=== PATIENT | female | born 1990 | race Caucasian/White ===

== ENCOUNTER 2022-08-05 12:23 | Emergency (ER) | payer BC, SELFPAY ==
--- NOTE | ~2022-08-05 | US_ITS ---
EXAMINATION: US PELVIS CLINICAL INFORMATION: Suprapubic pain radiating to the abdomen. LMP 07/26/2022. COMPARISON: No similar priors. TECHNIQUE: Ultrasound of the pelvis is performed using both transabdominal and transvaginal transducers along with Doppler. Transvaginal imaging is performed due to inadequate visualization transabdominally. FINDINGS: The uterus is anteverted and anteflexed measuring 8 x 4.7 x 5 cm. No uterine lesion noted. The endometrium measures 0.7 cm in thickness without discrete focal abnormality. The ovaries are normal in morphology with preserved flow at the moment of this examination. The right ovary measures 3.5 x 2 x 1.9 cm (7 mL) and the left ovary measures 3.1 x 2.2 x 2.1 cm (7.5 mL). There is a simple appearing cyst in the right ovary measuring 1.4 x 1 x 0.9 cm, almost certainly benign and for which no imaging follow-up is recommended. In the right adnexa, there are dilated adnexal vessels with slow flow. No free fluid. US/US pelvic ovarian doppler IMPRESSION: Dilated right adnexal vessels with slow flow that could predispose to DVT formation and which could be seen in the setting of pelvic congestion syndrome in the appropriate clinical context.
--- NOTE | ~2022-08-05 | CT_ITS ---
EXAMINATION: CT ABDOMEN AND PELVIS WITH CONTRAST CLINICAL INFORMATION: 42-year-old female with lower abdominal pain and nausea COMPARISON: Pelvic ultrasound from the same day area TECHNIQUE: Multidetector volumetric images were obtained from the superior aspect of the liver through the pubic symphysis following administration 85 mL of Omnipaque 350 intravenous contrast. Sagittal and coronal reformatted images were obtained on the technologist's workstation. Oral contrast: No This CT examination was performed using dose optimization techniques as appropriate, variously including the following: *Automated exposure control *Adjustment of mA and/or kV according to patient size (this includes techniques or standardized protocols for targeted exams where dose is matched to indication/reason for exam; i.e. extremities or head) *Use of iterative reconstruction technique DLP: 782 mGy-cm FINDINGS: LUNG BASES: The visualized lung bases are unremarkable. LIVER, GALLBLADDER, AND BILIARY TREE: The liver is normal in size, shape, and attenuation. No focal hepatic lesion or biliary ductal dilatation is present. The gallbladder is unremarkable with no evidence of radiopaque gallstones, gallbladder wall thickening, or obvious pericholecystic inflammatory changes. PANCREAS: Unremarkable. SPLEEN: Spleen measures 14.3 cm, enlarged ADRENAL GLANDS: Unremarkable. KIDNEYS AND URETERS: The kidneys are normal in size, shape, and attenuation. No hydronephrosis, hydroureter, or calculi seen. No perinephric stranding. BLADDER: Unremarkable. GASTROINTESTINAL TRACT: There is thickening of descending colon surrounded by haziness of the mesentery with few inflamed diverticuli the descending colon is mildly thickened also. Scattered diverticula seen through the rest of the colon. Normal appendix present. Loops of small bowel unremarkable. ABDOMINAL WALL: No significant hernia is appreciated. LYMPH NODES: Normal. VASCULAR: Unremarkable. PELVIC VISCERA: There is small amount of fluid in cul-de-sac. OSSEOUS STRUCTURES: Unremarkable. CT/CT abdomen pelvis w IV con IMPRESSION: 1. Diverticulitis of descending and sigmoid colon, colitis of sigmoid colon. 2. Small amount of fluid in cul-de-sac. 3. Splenomegaly. Fleischner guidelines were followed.
--- NOTE | ~2022-08-05 | US_ITS ---
EXAMINATION: US PELVIS CLINICAL INFORMATION: Suprapubic pain radiating to the abdomen. LMP 07/26/2022. COMPARISON: No similar priors. TECHNIQUE: Ultrasound of the pelvis is performed using both transabdominal and transvaginal transducers along with Doppler. Transvaginal imaging is performed due to inadequate visualization transabdominally. FINDINGS: The uterus is anteverted and anteflexed measuring 8 x 4.7 x 5 cm. No uterine lesion noted. The endometrium measures 0.7 cm in thickness without discrete focal abnormality. The ovaries are normal in morphology with preserved flow at the moment of this examination. The right ovary measures 3.5 x 2 x 1.9 cm (7 mL) and the left ovary measures 3.1 x 2.2 x 2.1 cm (7.5 mL). There is a simple appearing cyst in the right ovary measuring 1.4 x 1 x 0.9 cm, almost certainly benign and for which no imaging follow-up is recommended. In the right adnexa, there are dilated adnexal vessels with slow flow. No free fluid. US/US pelvic and transvaginal IMPRESSION: Dilated right adnexal vessels with slow flow that could predispose to DVT formation and which could be seen in the setting of pelvic congestion syndrome in the appropriate clinical context.
[2022-08-05 12:51] VITALS: BP 99/55; PULSE 99; RESP 18; TEMP 36.6; O2SAT 98; BMI 34.4
--- NOTE | 2022-08-05 12:51 | ED.ABDPAIN ---
HPI - Abdominal Pain General Chief Complaint: Abdominal Pain <PAM Britt - Last Filed: 08/05/22 12:55> Stated Complaint: Abd pain <PAM Britt - Last Filed: 08/05/22 12:55> Time Seen by Provider: 08/05/22 13:55 <PAM Britt - Last Filed: 08/05/22 12:55> Source: patient <Mary Salcido NP - Last Filed: 08/05/22 16:46> Mode of arrival: ambulatory <Mary Salcido NP - Last Filed: 08/05/22 16:46> Limitations: no limitations <Mary Salcido NP - Last Filed: 08/05/22 16:46> History of Present Illness HPI narrative: 32-year-old female with history of ovarian cyst, tubal ligation presents to the emergency room with complaints of lower abdominal pain for the last 3 days with nausea. No diarrhea, constipation, fevers, chills or urinary symptoms. Patient denies any vaginal discharge, rashes or lesions. <Mary Salcido NP - Last Filed: 08/05/22 16:46> MD elicited complaint: abdominal pain <Mary Salcido NP - Last Filed: 08/05/22 16:46> Related Data Home Medications: Previous Rx's Medication Instructions Recorded amoxicillin 875 mg-potassium 1 tab PO BID #14 tabs 08/05/22 clavulanate 125 mg tablet oxycodone 5 mg tablet 5 mg PO Q6H PRN pain #10 tabs 08/05/22 <PAM Britt - Last Filed: 08/05/22 12:55> Allergies/Adverse Reactions: Allergies Allergy/AdvReac Type Severity Reaction Status Date / Time azithromycin Allergy Mild Unknown Uncoded 08/05/22 12:52 <PAM Britt - Last Filed: 08/05/22 12:55> Review of Systems Review of Systems Yes all other systems are reviewed and are negative <OLIVERIO Gamino Last Filed: 08/05/22 16:46> Constitutional: Reports no additional constitutional complaints, Denies body ache(s), Denies chills, Denies fever(s), Denies headache(s) and Denies weakness <Mary Salcido MIRROR FINISHING MACHINE OPERATOR - Last Filed: 08/05/22 16:46> Eyes: Reports no additional eye complaints and Denies change in vision <Mary Salcido MIRROR FINISHING MACHINE OPERATOR - Last Filed: 08/05/22 16:46> Reports system reviewed and no additional complaints, except as documented, Denies dizziness, Denies headache(s), Denies nasal congestion, Denies nasal discharge and Denies neck pain <Mary Salcido MIRROR FINISHING MACHINE OPERATOR - Last Filed: 08/05/22 16:46> Cardiovascular: Reports no additional cardiovascular complaints, Denies chest pain, Denies leg edema and Denies dyspnea <Mary Salcido MIRROR FINISHING MACHINE OPERATOR - Last Filed: 08/05/22 16:46> Respiratory: Reports no additional respiratory complaints, Denies cough and Denies dyspnea <Mary Salcido, MIRROR FINISHING MACHINE OPERATOR - Last Filed: 08/05/22 16:46> Gastrointestinal: Reports no additional gastrointestinal complaints, Reports abdominal pain, Denies diarrhea, Reports nausea and Denies vomiting <Mary Salcido, MIRROR FINISHING MACHINE OPERATOR - Last Filed: 08/05/22 16:46> Genitourinary: Reports no additional female genitourinary complaints and Denies urinary incontinence <Mary Salcido MIRROR FINISHING MACHINE OPERATOR - Last Filed: 08/05/22 16:46> Musculoskeletal: Reports no additional musculoskeletal complaints, Denies back pain, Denies arthralgias, Denies joint swelling, Denies neck pain, Denies numbness and Denies tingling <Mary Salcido MIRROR FINISHING MACHINE OPERATOR - Last Filed: 08/05/22 16:46> Skin/Breast: Reports system reviewed and no additional complaints, except as docu and Denies rash <Mary Salcido, MIRROR FINISHING MACHINE OPERATOR - Last Filed: 08/05/22 16:46> Reports system reviewed and no additional complaints, except as documented, Denies dizziness, Denies headache(s), Denies numbness, Denies tingling and Denies weakness <Mary Salcido MIRROR FINISHING MACHINE OPERATOR - Last Filed: 08/05/22 16:46> PMFSH Past Medical History Attestation statement: The following information was validated with the patient. <Mary Salcido MIRROR FINISHING MACHINE OPERATOR - Last Filed: 08/05/22 16:46> Source: old records reviewed and nursing notes reviewed <Mary Salcido NP - Last Filed: 08/05/22 16:46> Social History Social History: Social History Advance Directives: No Advance Directives Information Provided: No <PAM Britt - Last Filed: 08/05/22 12:55> Physical Exam ED Vital Signs: Vital Signs - 24 hr 08/05/22 12:51 08/05/22 15:24 Temperature 98 F Pulse Rate 99 Respiratory Rate 18 16 Blood Pressure 99/55 L Pulse Oximetry 98 BMI result Body Mass Index 34.4 <PAM Britt - Last Filed: 08/05/22 12:55> Vital Signs - 24 hr 08/05/22 12:51 08/05/22 15:24 Temperature 98 F Pulse Rate 99 Respiratory Rate 18 16 Blood Pressure 99/55 L Pulse Oximetry 98 BMI result Body Mass Index 34.4 <Mary Salcido NP - Last Filed: 08/05/22 16:46> Const General: cooperative, healthy appearing, comfortable and no acute distress <Mary Salcido NP - Last Filed: 08/05/22 16:46> Orientation/consciousness: patient oriented x3 <Mary Salcido NP - Last Filed: 08/05/22 16:46> Limitations: no limitations <Mary Salcido NP - Last Filed: 08/05/22 16:46> HENME Head: Yes normal to inspection <Mary Salcido NP - Last Filed: 08/05/22 16:46> Ears: hearing grossly normal bilaterally <Mary Salcido NP - Last Filed: 08/05/22 16:46> Eyes General: appearance normal, both eyes and all related structures <Mary Salcido NP - Last Filed: 08/05/22 16:46> Pupils: Equal, round and reactive pupils present <Mary Salcido NP - Last Filed: 08/05/22 16:46> Neck Neck: Yes normal visual inspection, Yes full ROM and Yes no lymphadenopathy <Mary Salcido MIRROR FINISHING MACHINE OPERATOR - Last Filed: 08/05/22 16:46> Chest Chest palpation & inspection: normal inspection of the chest <Mary Salcido MIRROR FINISHING MACHINE OPERATOR - Last Filed: 08/05/22 16:46> Resp Effort & Inspection: normal respiratory effort <Mary Salcido MIRROR FINISHING MACHINE OPERATOR - Last Filed: 08/05/22 16:46> Auscultation: clear to auscultation bilaterally <Mary Salcido MIRROR FINISHING MACHINE OPERATOR - Last Filed: 08/05/22 16:46> Cardio Rate: regular rate <Mary Salcido, MIRROR FINISHING MACHINE OPERATOR - Last Filed: 08/05/22 16:46> Rhythm: regular rhythm <Mary Salcido MIRROR FINISHING MACHINE OPERATOR - Last Filed: 08/05/22 16:46> Peripheral pulses: Peripheral pulses 2+ throughout <Mary Salcido, MIRROR FINISHING MACHINE OPERATOR - Last Filed: 08/05/22 16:46> GI Inspection: Yes normal to inspection <Mary Salcido MIRROR FINISHING MACHINE OPERATOR - Last Filed: 08/05/22 16:46> Palpation (GI): Soft to palpation, Tenderness to palpation present (GI) (+lower TTP) and no guarding <Mary Salcido MIRROR FINISHING MACHINE OPERATOR - Last Filed: 08/05/22 16:46> Auscultation: normal bowel sounds <Mary Salcido MIRROR FINISHING MACHINE OPERATOR - Last Filed: 08/05/22 16:46> General: Yes no CVA tenderness <Mary Salcido MIRROR FINISHING MACHINE OPERATOR - Last Filed: 08/05/22 16:46> Back/Spine/Pelvis Back: no CVA tenderness <Mary Salcido, MIRROR FINISHING MACHINE OPERATOR - Last Filed: 08/05/22 16:46> Thoracic/Lumbar Spine: thoracic and lumbar spine normal to inspection <Mary Salcido MIRROR FINISHING MACHINE OPERATOR - Last Filed: 08/05/22 16:46> Skin General skin exam: no rashes or lesions noted <Mary Salcido MIRROR FINISHING MACHINE OPERATOR - Last Filed: 08/05/22 16:46> Neuro General: patient oriented x3 and moves all extremities <Mary Salcido MIRROR FINISHING MACHINE OPERATOR - Last Filed: 08/05/22 16:46> Cranial nerves: Yes Equal, round and reactive pupils present <Mary Salcido NP - Last Filed: 08/05/22 16:46> Cognition (Neuro): normal cognition <Mary Salcido NP - Last Filed: 08/05/22 16:46> Gait exam (Neuro): Normal gait present <Mary Salcido NP - Last Filed: 08/05/22 16:46> Extrem General: Yes normal to inspection <Mary Salcido NP - Last Filed: 08/05/22 16:46> Course Course Course Narrative: JEREMÍAS 12:50PM - 32yoF with a PMHx of ovarian cyst who is presenting to the ER with complaints of nausea with suprapubic abdominal pain that has radiated to the rest of her abdomen for the past 2-3 days worse today. Reports that she has chronic constipation. Denies fevers, vomiting, diarrhea, dysuria, hematuria, abnormal vaginal discharge or any other symptoms complaints or concerns at this time. Plan: Will obtain labs, UA, UHCG, pelvic/transvaginal/Doppler ultrasound. Patient will be sent back to [facility] to be evaluated in the ED. <PAM Britt - Last Filed: 08/05/22 12:55> Reevaluation(s) Reevaluation #1: 8190- ultrasound consistent with pelvic congestion syndrome. Not sure that this is explaining all the patient's pain and so I will obtain a CT of the abdomen and pelvis to evaluate further <Mary Salcido NP - Last Filed: 08/05/22 16:46> Reevaluation #2: 7345- CT shows mild diverticulitis. No leukocytosis. Pain is well controlled. Patient tolerating p.o.. Patient be discharged home with oral antibiotic. Reviewed worrisome signs and symptoms when to return to the emergency room. Comfortable discharge home for <Mary Salcido NP - Last Filed: 08/05/22 16:46> Medical Decision Making Medical Decision Making MDM Narrative: 32-year-old female here with lower abdominal pain for the last 3 days with nausea. No other associated symptoms. Patient has history of ovarian cyst. On exam patient bilateral lower abdominal tenderness with no rebound or guarding. Vitals stable. patient had labs, UA, pelvic ultrasound with Doppler ordered from triage <Mary Salcido NP - Last Filed: 08/05/22 16:46> Differential Diagnosis Differential Diagnoses: The differential diagnosis associated with the presentation includes <Mary Salcido NP - Last Filed: 08/05/22 16:46> ovarian cyst, ovarian torsion, diverticulitis, appendicitis <Mary Salcido NP - Last Filed: 08/05/22 16:46> Lab Data MDM Lab Attestation statement: I reviewed the patient's lab results. <Mary Salcido NP - Last Filed: 08/05/22 16:46> Result Diagrams: 08/05/22 13:42 08/05/22 13:42 <PAM Britt - Last Filed: 08/05/22 12:55> Labs: Lab Results 08/05/22 08/05/22 08/05/22 Range/Units 13:42 13:42 13:42 WBC 12.3 H (4.8-10.8) X10*3/uL RBC 4.80 (4.20-5.50) X10*6/uL Hgb 13.4 (12.0-16.0) g/dl Hct 39.2 (37.0-47.0) % MCV 81.7 (80.0-98.0) fL MCH 27.9 (27.0-33.0) pg MCHC 34.2 (31.0-35.0) g/dl RDW 12.4 (11.0-16.0) % Plt Count 316 (160-400) X10*3/uL MPV 8.6 L (9.4-12.3) fL Immature Gran % (Auto) 0.3 (0.0-0.4) % Neut % (Auto) 79.6 H (45-73) % Lymph % (Auto) 10.1 L (20-40) % [place] % (Auto) 8.0 (2-11) % Eos % (Auto) 1.5 (0-4) % Baso % (Auto) 0.5 (0-2) % Lymph # (Auto) 1.2 (1.2-4.9) X10*3/uL [place] # (Auto) 1.0 (0.1-1.2) X10*3/uL Eos # (Auto) 0.2 (0.0-0.4) X10*3/uL Baso # (Auto) 0.1 (0.0-0.2) X10*3/uL Abs Immat Gran (auto) 0.04 H (0.00-0.03) X10*3/uL Absolute Neuts (auto) 9.8 H (2.0-8.3) x10*3/uL Absolute Nucleated RBC 0.000 (0.0-0.012) X10*3/uL Nucleated RBC % (auto) 0.0 (0.0-0.2) /100WBC PT 13.1 (10.0-13.1) SEC INR 1.1 (0.9-1.1) Sodium 140 (135-145) mmol/L Potassium 3.8 (3.3-5.1) mmol/L Chloride 107 (96-108) mmol/L Carbon Dioxide 23 (22-29) mmol/L Anion Gap 14 (12-20) BUN 14 (9-16) mg/dL Creatinine 0.90 (0.5-1.4) mg/dL Estim Creat Clear Calc 89.2 Estimated GFR > 60 Random Glucose 91 (60-115) mg/dL Calcium 8.8 (8.4-10.2) mg/dL Magnesium 2.1 (1.6-2.6) mg/dL Total Bilirubin 1.4 H (0.0-1.0) mg/dL AST 15 (5-31) U/L ALT 12 (0-31) U/L Alkaline Phosphatase 68 (39-117) U/L Total Protein 7.1 (6.5-8.0) g/dL Albumin 4.2 (3.5-5.0) g/dL Lipase 13 (8-78) U/L Beta HCG, Quant < 2 mIU/mL Urine Color Urine Appearance Urine pH (5.0-9.0) Ur Specific [place] (1.005-1.025) Urine Protein (Neg-Trace) mg/dL Urine Glucose (UA) (Negative) mg/dL Urine Ketones (Negative) mg/dL Urine Blood (Negative) Urine Nitrite (Negative) Ur Leukocyte Esterase (Negative) Urine RBC (0-2) /HPF Urine WBC (0-5) /HPF Ur Squamous Epith Cells (0-2) /HPF Urine Bacteria (None Seen) Hyaline Casts (0-2) /LPF 08/05/22 Range/Units 13:42 WBC (4.8-10.8) X10*3/uL RBC (4.20-5.50) X10*6/uL Hgb (12.0-16.0) g/dl Hct (37.0-47.0) % MCV (80.0-98.0) fL MCH (27.0-33.0) pg MCHC (31.0-35.0) g/dl RDW (11.0-16.0) % Plt Count (160-400) X10*3/uL MPV (9.4-12.3) fL Immature Gran % (Auto) (0.0-0.4) % Neut % (Auto) (45-73) % Lymph % (Auto) (20-40) % [place] % (Auto) (2-11) % Eos % (Auto) (0-4) % Baso % (Auto) (0-2) % Lymph # (Auto) (1.2-4.9) X10*3/uL [place] # (Auto) (0.1-1.2) X10*3/uL Eos # (Auto) (0.0-0.4) X10*3/uL Baso # (Auto) (0.0-0.2) X10*3/uL Abs Immat Gran (auto) (0.00-0.03) X10*3/uL Absolute Neuts (auto) (2.0-8.3) x10*3/uL Absolute Nucleated RBC (0.0-0.012) X10*3/uL Nucleated RBC % (auto) (0.0-0.2) /100WBC PT (10.0-13.1) SEC INR (0.9-1.1) Sodium (135-145) mmol/L Potassium (3.3-5.1) mmol/L Chloride (96-108) mmol/L Carbon Dioxide (22-29) mmol/L Anion Gap (12-20) BUN (9-16) mg/dL Creatinine (0.5-1.4) mg/dL Estim Creat Clear Calc Estimated GFR Random Glucose (60-115) mg/dL Calcium (8.4-10.2) mg/dL Magnesium (1.6-2.6) mg/dL Total Bilirubin (0.0-1.0) mg/dL AST (5-31) U/L ALT (0-31) U/L Alkaline Phosphatase (39-117) U/L Total Protein (6.5-8.0) g/dL Albumin (3.5-5.0) g/dL Lipase (8-78) U/L Beta HCG, Quant mIU/mL Urine Color Yellow Urine Appearance Clear Urine pH 7.0 (5.0-9.0) Ur Specific [place] 1.025 (1.005-1.025) Urine Protein Negative (Neg-Trace) mg/dL Urine Glucose (UA) Negative (Negative) mg/dL Urine Ketones Negative (Negative) mg/dL Urine Blood Trace H (Negative) Urine Nitrite Negative (Negative) Ur Leukocyte Esterase Trace H (Negative) Urine RBC 0-2 (0-2) /HPF Urine WBC 0-5 (0-5) /HPF Ur Squamous Epith Cells 6-10 (0-2) /HPF Urine Bacteria 1+ (None Seen) Hyaline Casts 0-2 (0-2) /LPF <PAM Britt - Last Filed: 08/05/22 12:55> Lab Results 08/05/22 08/05/22 08/05/22 Range/Units 13:42 13:42 13:42 WBC 12.3 H (4.8-10.8) X10*3/uL RBC 4.80 (4.20-5.50) X10*6/uL Hgb 13.4 (12.0-16.0) g/dl Hct 39.2 (37.0-47.0) % MCV 81.7 (80.0-98.0) fL MCH 27.9 (27.0-33.0) pg MCHC 34.2 (31.0-35.0) g/dl RDW 12.4 (11.0-16.0) % Plt Count 316 (160-400) X10*3/uL MPV 8.6 L (9.4-12.3) fL Immature Gran % (Auto) 0.3 (0.0-0.4) % Neut % (Auto) 79.6 H (45-73) % Lymph % (Auto) 10.1 L (20-40) % [place] % (Auto) 8.0 (2-11) % Eos % (Auto) 1.5 (0-4) % Baso % (Auto) 0.5 (0-2) % Lymph # (Auto) 1.2 (1.2-4.9) X10*3/uL [place] # (Auto) 1.0 (0.1-1.2) X10*3/uL Eos # (Auto) 0.2 (0.0-0.4) X10*3/uL Baso # (Auto) 0.1 (0.0-0.2) X10*3/uL Abs Immat Gran (auto) 0.04 H (0.00-0.03) X10*3/uL Absolute Neuts (auto) 9.8 H (2.0-8.3) x10*3/uL Absolute Nucleated RBC 0.000 (0.0-0.012) X10*3/uL Nucleated RBC % (auto) 0.0 (0.0-0.2) /100WBC PT 13.1 (10.0-13.1) SEC INR 1.1 (0.9-1.1) Sodium 140 (135-145) mmol/L Potassium 3.8 (3.3-5.1) mmol/L Chloride 107 (96-108) mmol/L Carbon Dioxide 23 (22-29) mmol/L Anion Gap 14 (12-20) BUN 14 (9-16) mg/dL Creatinine 0.90 (0.5-1.4) mg/dL Estim Creat Clear Calc 89.2 Estimated GFR > 60 Random Glucose 91 (60-115) mg/dL Calcium 8.8 (8.4-10.2) mg/dL Magnesium 2.1 (1.6-2.6) mg/dL Total Bilirubin 1.4 H (0.0-1.0) mg/dL AST 15 (5-31) U/L ALT 12 (0-31) U/L Alkaline Phosphatase 68 (39-117) U/L Total Protein 7.1 (6.5-8.0) g/dL Albumin 4.2 (3.5-5.0) g/dL Lipase 13 (8-78) U/L Beta HCG, Quant < 2 mIU/mL Urine Color Urine Appearance Urine pH (5.0-9.0) Ur Specific [place] (1.005-1.025) Urine Protein (Neg-Trace) mg/dL Urine Glucose (UA) (Negative) mg/dL Urine Ketones (Negative) mg/dL Urine Blood (Negative) Urine Nitrite (Negative) Ur Leukocyte Esterase (Negative) Urine RBC (0-2) /HPF Urine WBC (0-5) /HPF Ur Squamous Epith Cells (0-2) /HPF Urine Bacteria (None Seen) Hyaline Casts (0-2) /LPF 08/05/22 Range/Units 13:42 WBC (4.8-10.8) X10*3/uL RBC (4.20-5.50) X10*6/uL Hgb (12.0-16.0) g/dl Hct (37.0-47.0) % MCV (80.0-98.0) fL MCH (27.0-33.0) pg MCHC (31.0-35.0) g/dl RDW (11.0-16.0) % Plt Count (160-400) X10*3/uL MPV (9.4-12.3) fL Immature Gran % (Auto) (0.0-0.4) % Neut % (Auto) (45-73) % Lymph % (Auto) (20-40) % [place] % (Auto) (2-11) % Eos % (Auto) (0-4) % Baso % (Auto) (0-2) % Lymph # (Auto) (1.2-4.9) X10*3/uL [place] # (Auto) (0.1-1.2) X10*3/uL Eos # (Auto) (0.0-0.4) X10*3/uL Baso # (Auto) (0.0-0.2) X10*3/uL Abs Immat Gran (auto) (0.00-0.03) X10*3/uL Absolute Neuts (auto) (2.0-8.3) x10*3/uL Absolute Nucleated RBC (0.0-0.012) X10*3/uL Nucleated RBC % (auto) (0.0-0.2) /100WBC PT (10.0-13.1) SEC INR (0.9-1.1) Sodium (135-145) mmol/L Potassium (3.3-5.1) mmol/L Chloride (96-108) mmol/L Carbon Dioxide (22-29) mmol/L Anion Gap (12-20) BUN (9-16) mg/dL Creatinine (0.5-1.4) mg/dL Estim Creat Clear Calc Estimated GFR Random Glucose (60-115) mg/dL Calcium (8.4-10.2) mg/dL Magnesium (1.6-2.6) mg/dL Total Bilirubin (0.0-1.0) mg/dL AST (5-31) U/L ALT (0-31) U/L Alkaline Phosphatase (39-117) U/L Total Protein (6.5-8.0) g/dL Albumin (3.5-5.0) g/dL Lipase (8-78) U/L Beta HCG, Quant mIU/mL Urine Color Yellow Urine Appearance Clear Urine pH 7.0 (5.0-9.0) Ur Specific [place] 1.025 (1.005-1.025) Urine Protein Negative (Neg-Trace) mg/dL Urine Glucose (UA) Negative (Negative) mg/dL Urine Ketones Negative (Negative) mg/dL Urine Blood Trace H (Negative) Urine Nitrite Negative (Negative) Ur Leukocyte Esterase Trace H (Negative) Urine RBC 0-2 (0-2) /HPF Urine WBC 0-5 (0-5) /HPF Ur Squamous Epith Cells 6-10 (0-2) /HPF Urine Bacteria 1+ (None Seen) Hyaline Casts 0-2 (0-2) /LPF <Mary Salcido NP - Last Filed: 08/05/22 16:46> Independent Interpretation I performed an independent interpretation of an: Ultrasound <Mary Salcido NP - Last Filed: 08/05/22 16:46> Interpretation: I indepedentely reviewed the ultrasound agree with radiologist's report I independently reviewed the CT scan and agree with radiologist's report <Mary Salcido NP - Last Filed: 08/05/22 16:46> Radiology Impression Discussion of test interpretation with radiology: I have reviewed the radiologist's reading. <Mary Salcido NP - Last Filed: 08/05/22 16:46> Radiologist Impression: [address] [address] Ultrasound Report Signed Patient: Danna Belle MR#: [id number] : 1990 Acct:[id number] Age/Sex: 32 / F ADM Date: 08/05/22 Loc: .ED Attending Dr: Ordering Physician: Talita Tubbs Date of Service: 08/05/22 Procedure(s): US pelvic and transvaginal Accession Number(s): [id number] cc: Talita Tubbs~ EXAMINATION:? US PELVIS CLINICAL INFORMATION:? Suprapubic pain radiating to the abdomen. LMP 07/26/2022. COMPARISON: No similar priors. TECHNIQUE: Ultrasound of the pelvis is performed using both transabdominal and transvaginal transducers along with Doppler. Transvaginal imaging is performed due to inadequate visualization transabdominally. FINDINGS: The uterus is anteverted and anteflexed measuring 8 x 4.7 x 5 cm. No uterine lesion noted. The endometrium measures 0.7 cm in thickness without discrete focal abnormality. The ovaries are normal in morphology with preserved flow at the moment of this examination. The right ovary measures 3.5 x 2 x 1.9 cm (7 mL) and the left ovary measures 3.1 x 2.2 x 2.1 cm (7.5 mL). There is a simple appearing cyst in the right ovary measuring 1.4 x 1 x 0.9 cm, almost certainly benign and for which no imaging follow-up is recommended. In the right adnexa, there are dilated adnexal vessels with slow flow. No free fluid. US/US pelvic and transvaginal IMPRESSION: Dilated right adnexal vessels with slow flow that could predispose to DVT formation and which could be seen in the setting of pelvic congestion syndrome in the appropriate clinical context. FINDINGS: LUNG BASES: The visualized lung bases are unremarkable.? LIVER, GALLBLADDER, AND BILIARY TREE: The liver is normal in size, shape, and attenuation. No focal hepatic lesion or biliary ductal dilatation is present. The gallbladder is unremarkable with no evidence of radiopaque gallstones, gallbladder wall thickening, or obvious pericholecystic inflammatory changes.? PANCREAS: Unremarkable.? SPLEEN: Spleen measures 14.3 cm, enlarged? ADRENAL GLANDS: Unremarkable.? KIDNEYS AND URETERS: The kidneys are normal in size, shape, and attenuation. No hydronephrosis, hydroureter, or calculi seen. No perinephric stranding. ? BLADDER: Unremarkable.? GASTROINTESTINAL TRACT: There is thickening of descending colon surrounded by haziness of the mesentery with few inflamed diverticuli the descending colon is mildly thickened also. Scattered diverticula seen through the rest of the colon. Normal appendix present. Loops of small bowel unremarkable.? ABDOMINAL WALL: No significant hernia is appreciated.? LYMPH NODES: Normal. VASCULAR: Unremarkable. PELVIC VISCERA: There is small amount of fluid in cul-de-sac.? OSSEOUS STRUCTURES: Unremarkable.? CT/CT abdomen pelvis w IV con IMPRESSION: 1.? Diverticulitis of descending and sigmoid colon, colitis of sigmoid colon. 2.? Small amount of fluid in cul-de-sac. 3.? Splenomegaly. ? <Mary Salcido NP - Last Filed: 08/05/22 16:46> Independent Historian Clinical information obtained from an independent historian. History obtained from or confirmed by: Spouse <Mary Salcido NP - Last Filed: 08/05/22 16:46> Medications Administered Discontinued Medications Generic Name Dose Route Start Last Admin Trade Name Antionette PRN Reason Stop Dose Admin Acetaminophen 975 mg 08/05/22 16:07 08/05/22 16:38 Acetaminophen 325 Mg Tablet PO 08/05/22 16:08 975 mg ONCE ONE Administration Iohexol 85 ml 08/05/22 15:07 08/05/22 15:08 Iohexol 350 Mg/Ml 100 Ml Infus..Btl IV 08/05/22 15:08 85 ml ONCE ONE Administration Morphine Sulfate 4 mg 08/05/22 14:07 08/05/22 14:20 Morphine Sulfate 4 Mg/Ml Cartridge IVPUSH 08/05/22 14:08 4 mg ONCE ONE Administration Protocol Ondansetron HCl 4 mg 08/05/22 14:07 08/05/22 14:20 Ondansetron Hcl 4 Mg/2 Ml Vial IVPUSH 08/05/22 14:08 4 mg ONCE ONE Administration Oxycodone HCl 5 mg 08/05/22 16:07 08/05/22 16:37 Oxycodone Hcl Immed Release 5 Mg Tablet PO 08/05/22 16:08 5 mg ONCE ONE Administration <PAM Britt - Last Filed: 08/05/22 12:55> Medications Administered Discontinued Medications Generic Name Dose Route Start Last Admin Trade Name Antionette PRN Reason Stop Dose Admin Acetaminophen 975 mg 08/05/22 16:07 08/05/22 16:38 Acetaminophen 325 Mg Tablet PO 08/05/22 16:08 975 mg ONCE ONE Administration Iohexol 85 ml 08/05/22 15:07 08/05/22 15:08 Iohexol 350 Mg/Ml 100 Ml Infus..Btl IV 08/05/22 15:08 85 ml ONCE ONE Administration Morphine Sulfate 4 mg 08/05/22 14:07 08/05/22 14:20 Morphine Sulfate 4 Mg/Ml Cartridge IVPUSH 08/05/22 14:08 4 mg ONCE ONE Administration Protocol Ondansetron HCl 4 mg 08/05/22 14:07 08/05/22 14:20 Ondansetron Hcl 4 Mg/2 Ml Vial IVPUSH 08/05/22 14:08 4 mg ONCE ONE Administration Oxycodone HCl 5 mg 08/05/22 16:07 08/05/22 16:37 Oxycodone Hcl Immed Release 5 Mg Tablet PO 08/05/22 16:08 5 mg ONCE ONE Administration <Mary Salcido NP - Last Filed: 08/05/22 16:46> Discharge Plan Discharge Clinical Impression: Diverticulitis <PAM Britt - Last Filed: 08/05/22 12:55> Patient Disposition: Home, Self-Care <PAM Britt - Last Filed: 08/05/22 12:55> Instructions: Diverticulitis (ED), Diverticulitis Diet (ED) <PAM Britt - Last Filed: 08/05/22 12:55> Additional Instructions: return for worsening pain, fever, vomiting your ultrasound shows pelvic congestion syndrome. This is likely an incidental finding and something that you did not know about that you have had for many years. You may follow-up with a talent acquisition lead in regards to this <PAM Britt - Last Filed: 08/05/22 12:55> Prescriptions: New amoxicillin-pot clavulanate 875-125 mg tablet 1 tab PO BID Qty: 14 0RF oxycodone 5 mg tablet 5 mg PO Q6H PRN (Reason: pain) Qty: 10 0RF Rx Instructions: Partial Fill upon patient request. <PAM Britt - Last Filed: 08/05/22 12:55> Referrals: Marija Murray MD [Primary Care Provider] - 10 days (post er visit ) <PAM Britt - Last Filed: 08/05/22 12:55>
[2022-08-05 13:50] LABS: MANUAL DIFF FLAG NO
[2022-08-05 13:52] LABS: Basophils Absolute Auto 0.1 X10*3/uL (0.0-0.2); Basophils Percent Auto 0.5 % (0-2); Eosinophils Absolute Auto 0.2 X10*3/uL (0.0-0.4); Eosinophils Percent Auto 1.5 % (0-4); Hematocrit 39.2 % (37.0-47.0); Hemoglobin 13.4 g/dl (12.0-16.0); Imm Gran Abs Auto 0.04 X10*3/uL (0.00-0.03); Imm Gran Pct Auto 0.3 % (0.0-0.4); Lymphocytes Absolute Auto 1.2 X10*3/uL (1.2-4.9); Lymphocytes Percent Auto 10.1 % (20-40); Mean Corpuscular HGB Conc 34.2 g/dl (31.0-35.0); Mean Corpuscular Hemoglobin 27.9 pg (27.0-33.0); Mean Corpuscular Volume 81.7 fL (80.0-98.0); Mean Platelet Volume 8.6 fL (9.4-12.3); Neutrophils Absolute Auto 9.8 x10*3/uL (2.0-8.3); Neutrophils Percent Auto 79.6 % (45-73); Platelet Count 316 X10*3/uL (160-400); Red Cell Distribution Width 12.4 % (11.0-16.0); White Blood Count 12.3 X10*3/uL (4.8-10.8)
[2022-08-05 13:55] LABS: Appearance Urine Clear; Color Urine Yellow; Glucose Urine UA Negative (Negative); Leukocyte Esterase Urine Trace (Negative); Nitrite Urine Negative (Negative); Specific Gravity - Urine 1.025 (1.005-1.025); UMIC TRIGGER UACC YES; Urine Blood Trace (Negative); Urine Ketones Negative (Negative); Urine Protein Negative (Neg-Trace)
[2022-08-05 13:57] LABS: INTERNATIONAL NORM RATIO 1.1 (0.9-1.1); Prothrombin Time 13.1 SEC (10.0-13.1)
[2022-08-05 14:02] LABS: Bacteria Urine 1+ (None Seen); Hyaline Casts Urine 0-2 /LPF (0-2); RBC Urine 0-2 /HPF (0-2); WBC Urine 0-5 /HPF (0-5)
[2022-08-05 14:15] LABS: Alanine Aminotransferase 12 U/L (0-31); Albumin Level 4.2 g/dL (3.5-5.0); Alkaline Phosphatase 68 U/L (39-117); Anion Gap 14 (12-20); Aspartate Amino Transferase 15 U/L (5-31); Bilirubin Total 1.4 mg/dL (0.0-1.0); Blood Urea Nitrogen 14 mg/dL (9-16); Calcium 8.8 mg/dL (8.4-10.2); Carbon Dioxide 23 mmol/L (22-29); Chloride 107 mmol/L (96-108); Creatinine Clr Calc Pharmacy 89.2; Estimated Glomerular Filt Rate > 60; Glucose Random 91 mg/dL (60-115); Lipase 13 U/L (8-78); Magnesium 2.1 mg/dL (1.6-2.6); Potassium 3.8 mmol/L (3.3-5.1); Sodium 140 mmol/L (135-145); Total Protein 7.1 g/dL (6.5-8.0)
[2022-08-05 14:16] LABS: HCG Quantitative < 2 mIU/mL
[2022-08-05] MEDS: Morphine Sulfate 4 MG/ML CARTRIDGE IVPUSH (14:20)
[2022-08-05] MEDS: ondansetron HCL 4 MG/2 ML VIAL IVPUSH (14:20)
--- NOTE | 2022-08-05 15:00 | PC.NURSE ---
pt a&ox3, reporting 12/31 abd/back/ovarian pain, 20G IV placed left AC by PA student, medicated per provider order, pt to CT.
[2022-08-05] MEDS: iohexoL 350 MG/ML 100 ML INFUS..BTL 85 ML IV (15:08)
--- NOTE | 2022-08-05 15:23 | PC.NURSE ---
pt sleeping, rr16, resp even and unlabored, s.o. at bedside, pt pending CT results.
[2022-08-05 15:24] VITALS: RESP 16
[2022-08-05] MEDS: oxyCODONE HCl Immed Release 5 MG TABLET PO (16:37)
[2022-08-05] MEDS: Acetaminophen 325 MG TABLET 975 MG PO (16:38)
== END 2022-08-05 16:52 | disposition home or self-care (01) ==
PROVIDERS: Physician Assistant Medical; Emergency Provider Emergency Medicine Emergency Medical Services; PCP Hospitalist
DX: K57.32 Diverticulitis of large intestine without perforation or abscess without bleeding (principal); R10.2 Pelvic and perineal pain; R10.32 Left lower quadrant pain; Z79.899 Other long term (current) drug therapy
CPT/HCPCS: 36415; 74177; 76830; 76856; 80053; 81001; 81003; 83690; 83735; 84702; 85025; 85610; 93975; 99284; J2270; J2405; Q9967

== ENCOUNTER 2022-12-26 17:26 | Emergency (ER) | payer BC, SELFPAY ==
[2022-12-26 17:38] VITALS: BP 123/52; PULSE 95; RESP 18; TEMP 37.1; O2SAT 98; BMI 35.4
--- NOTE | 2022-12-26 17:38 | ED.GENADULT ---
HPI - General Adult General Chief complaint: Abdominal Pain Stated complaint: lower abd pain Time Seen by Provider: 12/26/22 17:57 Source: patient Mode of arrival: ambulatory Limitations: no limitations History of Present Illness HPI narrative: Patient is a 32-year-old female who presents emergency department for evaluation of left lower quadrant abdominal pain and associated nausea since yesterday morning. Reports a history of similar pain in the past when diagnosed with diverticulitis earlier this year. Also reporting dysuria. Denies fevers, chills, vomiting, diarrhea, constipation, bloody or dark stools, urinary frequency/urgency/hesitancy, hematuria, pelvic pain or abnormal vaginal discharge. Denies possibility of . Denies chest pain, shortness of breath, difficulty breathing. Related Data Previous Rx's Medication Instructions Recorded amoxicillin 875 mg-potassium 1 tab PO BID #14 tabs 08/05/22 clavulanate 125 mg tablet oxycodone 5 mg tablet 5 mg PO Q6H PRN pain #10 tabs 08/05/22 amoxicillin 875 mg-potassium 1 tab PO BID #14 tabs 12/26/22 clavulanate 125 mg tablet Allergies Allergy/AdvReac Type Severity Reaction Status Date / Time oxycodone AdvReac Dizziness Verified 12/26/22 17:38 azithromycin Allergy Mild Unknown Uncoded 08/05/22 12:52 Review of Systems Review of Systems: Constitutional : No Weight loss, No Fever, No Chills ENT/Mouth :? No sore throat, No Rhinorrhea Eyes: No Swelling, No Redness Cardiovascular : No Chest Pain, No SOB, No Edema Respiratory : No Cough, No Sputum, No Wheezing Gastrointestinal : Positive Nausea, no Vomiting, no Diarrhea, positive abdominal pain, No Hematochezia, No Melena Genitourinary : No Dysuria, No Urinary Frequency, No Hematuria, No Urgency? Musculoskeletal : No joint pain, No Myalgias, No Joint Swelling Skin : No Skin Lesions, No rash Neuro : No Weakness, No Numbness, No Dizziness, No Headache Psych : No Anxiety/Panic, No Depression Heme/Lymph: No Bruising, No Lymphadenopathy Endocrine : No Polyuria, No Polydipsia Yes all other systems are reviewed and are negative [facility] Past Medical History Attestation statement: The following information was validated with the patient. Source: old records reviewed Social History Social History Alcohol intake: current Alcohol intake frequency: holidays/special occasions only Smoked in Last 30 Days: No Use of substances other than those prescribed or required for medical reasons: No Advance Directives: No Advance Directives Information Provided: Yes Physical Exam ED Vital Signs: Vital Signs - 24 hr 12/26/22 17:38 12/26/22 18:03 12/26/22 19:04 Temperature 98.7 F Pulse Rate 95 68 104 H Respiratory Rate 18 18 20 Blood Pressure 123/52 L 94/52 L 99/59 L Pulse Oximetry 98 99 99 Oxygen Delivery Method Room Air Room Air Room Air BMI result Body Mass Index 35.4 Appearance: Alert.?Oriented to person, place and time. No acute distress.?Normal affect. Eyes: Pupils equal, round and reactive to light.? ENT: Pharynx normal.?? Neck: Normal inspection.? Neck supple.?? CVS: Heart sounds normal. Normal heart rate and rhythm.? Pulses normal.?? Respiratory: No respiratory distress.? Lung sounds clear to auscultation bilaterally?? Abdomen: Soft with left lower quadrant tenderness upon palpation. No rigidity, guarding, or distention. Normoactive bowel sounds. No pulsatile mass.?? Skin: Skin warm and dry.? Normal skin color.? Extremities: No lower extremity edema.? Neuro: Moves all extremities spontaneously. Sensation intact bilaterally. No focal neuro deficits. Ambulates with normal steady gait. Course Course Course Narrative: RME- 32-year-old female presents for evaluation of severe left lower quadrant pain. Pain started 2 days ago. She reports nausea without vomiting. She has a history of diverticulitis and reports this feels similar Reevaluation(s) Reevaluation #1: CBC reveals mild leukocytosis; 12 with left shift. CMP is unremarkable, lipase within normal limits, lower suspicion for biliary etiology at this time. test is negative. Urinalysis of evidence of bacteriuria, however squamous epithelial cells also per which may be urogenital contamination however since she is experiencing dysuria would treat as urinary tract infection. CT of the abdomen and pelvis reveals mild diverticulitis of the left colon. At this time feel the patient is stable for discharge home, she is tolerating oral intake, will treat with Augmentin for diverticulitis as well as urinary tract infection, although this is not considered first-line choice for UTI, based on local antibiotic would be near equivalent treatment if using level floxacillin alternatively, urine culture culture was obtained and will change as necessary. Reviewed these findings with patient. All questions answered. Time: 19:42 Medications Administered Discontinued Medications Generic Name Dose Route Start Last Admin Trade Name José Luisq PRN Reason Stop Dose Admin Sodium Chloride 1,000 mls @ 999 mls/hr 12/26/22 18:15 12/26/22 19:34 Ns IV 12/26/22 19:15 Infused .Q1H1M BREANN Infusion Iohexol 100 ml 12/26/22 18:50 12/26/22 18:51 Iohexol 350 Mg/Ml 100 Ml Infus..Btl IV 12/26/22 18:51 85 ml ONCE ONE Administration Morphine Sulfate 4 mg 12/26/22 18:14 12/26/22 18:26 Morphine Sulfate 4 Mg/Ml Cartridge IVPUSH 12/26/22 18:15 4 mg ONCE ONE Administration Protocol Ondansetron HCl 4 mg 12/26/22 18:14 12/26/22 18:26 Ondansetron Hcl 4 Mg/2 Ml Vial IVPUSH 12/26/22 18:15 4 mg ONCE ONE Administration Medical Decision Making Medical Decision Making MDM Narrative: Patient is a 32-year-old female with past medical history of ovarian cyst, tubal ligation, diverticulitis in July 2022 presenting to emergency department for evaluation of abdominal pain as per HPI. At the time my examination she appears uncomfortable, patient to receive morphine IV for pain, Zofran IV for nausea, 1 L normal saline. Will obtain CBC to evaluate for leukocytosis/ anemia, CMP and lipase to evaluate for abnormal electrolytes /abnormal renal function/ abnormal hepatic/biliary function, CT abdomen and pelvis and Urinalysis. Differential Diagnosis Differential Diagnoses: The differential diagnosis associated with the presentation includes (Diverticulitis, appendicitis, obstruction, repeat ovarian cyst, ovarian torsion nephritis, nephrolithiasis, urinary tract infection) Admission/Observation Consideration of admission/observation: Escalation of care including admission/observation considered (I considered admission to hospital for abdominal pain and nausea with history of diverticulitis. See course narrative) Lab Data MDM Lab Attestation statement: I reviewed the patient's lab results. (See course narrative) 12/26/22 17:49 12/26/22 17:49 Labs: Lab Results 12/26/22 12/26/22 12/26/22 Range/Units 17:49 17:49 17:49 WBC 12.0 H (4.8-10.8) X10*3/uL RBC 4.91 (4.20-5.50) X10*6/uL Hgb 13.6 (12.0-16.0) g/dl Hct 39.9 (37.0-47.0) % MCV 81.3 (80.0-98.0) fL MCH 27.7 (27.0-33.0) pg MCHC 34.1 (31.0-35.0) g/dl RDW 13.2 (11.0-16.0) % Plt Count 299 (160-400) X10*3/uL MPV 8.8 L (9.4-12.3) fL Immature Gran % (Auto) 0.4 (0.0-0.4) % Neut % (Auto) 73.2 H (45-73) % Lymph % (Auto) 15.4 L (20-40) % [place] % (Auto) 8.3 (2-11) % Eos % (Auto) 2.2 (0-4) % Baso % (Auto) 0.5 (0-2) % Lymph # (Auto) 1.8 (1.2-4.9) X10*3/uL [place] # (Auto) 1.0 (0.1-1.2) X10*3/uL Eos # (Auto) 0.3 (0.0-0.4) X10*3/uL Baso # (Auto) 0.1 (0.0-0.2) X10*3/uL Abs Immat Gran (auto) 0.05 H (0.00-0.03) X10*3/uL Absolute Neuts (auto) 8.8 H (2.0-8.3) x10*3/uL Absolute Nucleated RBC 0.000 (0.0-0.012) X10*3/uL Nucleated RBC % (auto) 0.0 (0.0-0.2) /100WBC Sodium 144 (135-145) mmol/L Potassium 4.1 (3.3-5.1) mmol/L Chloride 107 (96-108) mmol/L Carbon Dioxide 27 (22-29) mmol/L Anion Gap 14 (12-20) BUN 16 (9-16) mg/dL Creatinine 0.95 (0.5-1.4) mg/dL Estim Creat Clear Calc 85.8 Estimated GFR > 60 Random Glucose 79 (60-115) mg/dL Calcium 9.3 (8.4-10.2) mg/dL Total Bilirubin 0.5 (0.0-1.0) mg/dL AST 17 (5-31) U/L ALT 20 (0-31) U/L Alkaline Phosphatase 71 (39-117) U/L Total Protein 7.8 (6.5-8.0) g/dL Albumin 4.2 (3.5-5.0) g/dL Lipase 15 (8-78) U/L Beta HCG, Quant < 2 mIU/mL Urine Color Urine Appearance Urine pH (5.0-9.0) Ur Specific [place] (1.005-1.025) Urine Protein (Neg-Trace) mg/dL Urine Glucose (UA) (Negative) mg/dL Urine Ketones (Negative) mg/dL Urine Blood (Negative) Urine Nitrite (Negative) Ur Leukocyte Esterase (Negative) Urine RBC (0-2) /HPF Urine WBC (0-5) /HPF Ur Squamous Epith Cells (0-2) /HPF Urine Bacteria (None Seen) Hyaline Casts (0-2) /LPF 12/26/22 Range/Units 18:10 WBC (4.8-10.8) X10*3/uL RBC (4.20-5.50) X10*6/uL Hgb (12.0-16.0) g/dl Hct (37.0-47.0) % MCV (80.0-98.0) fL MCH (27.0-33.0) pg MCHC (31.0-35.0) g/dl RDW (11.0-16.0) % Plt Count (160-400) X10*3/uL MPV (9.4-12.3) fL Immature Gran % (Auto) (0.0-0.4) % Neut % (Auto) (45-73) % Lymph % (Auto) (20-40) % [place] % (Auto) (2-11) % Eos % (Auto) (0-4) % Baso % (Auto) (0-2) % Lymph # (Auto) (1.2-4.9) X10*3/uL [place] # (Auto) (0.1-1.2) X10*3/uL Eos # (Auto) (0.0-0.4) X10*3/uL Baso # (Auto) (0.0-0.2) X10*3/uL Abs Immat Gran (auto) (0.00-0.03) X10*3/uL Absolute Neuts (auto) (2.0-8.3) x10*3/uL Absolute Nucleated RBC (0.0-0.012) X10*3/uL Nucleated RBC % (auto) (0.0-0.2) /100WBC Sodium (135-145) mmol/L Potassium (3.3-5.1) mmol/L Chloride (96-108) mmol/L Carbon Dioxide (22-29) mmol/L Anion Gap (12-20) BUN (9-16) mg/dL Creatinine (0.5-1.4) mg/dL Estim Creat Clear Calc Estimated GFR Random Glucose (60-115) mg/dL Calcium (8.4-10.2) mg/dL Total Bilirubin (0.0-1.0) mg/dL AST (5-31) U/L ALT (0-31) U/L Alkaline Phosphatase (39-117) U/L Total Protein (6.5-8.0) g/dL Albumin (3.5-5.0) g/dL Lipase (8-78) U/L Beta HCG, Quant mIU/mL Urine Color Yellow Urine Appearance Clear Urine pH 6.0 (5.0-9.0) Ur Specific [place] >= 1.030 H (1.005-1.025) Urine Protein Negative (Neg-Trace) mg/dL Urine Glucose (UA) Negative (Negative) mg/dL Urine Ketones Trace (Negative) mg/dL Urine Blood Negative (Negative) Urine Nitrite Negative (Negative) Ur Leukocyte Esterase Small (1+) H (Negative) Urine RBC 3-5 H (0-2) /HPF Urine WBC 6-10 H (0-5) /HPF Ur Squamous Epith Cells 11-20 (0-2) /HPF Urine Bacteria 4+ (None Seen) Hyaline Casts 0-2 (0-2) /LPF Radiology Impression Discussion of test interpretation with radiology: I have reviewed the radiologist's reading. Radiologist Impression: CT/CT abdomen pelvis w IV con IMPRESSION: Mild diverticulitis of the distal left colon. External Record Review External record reviewed: Prior outpatient labs Prescription Management I considered prescription management with: Antibiotic (As per course narrative) Discharge Plan Discharge Clinical Impression: Diverticulitis, Urinary tract infection Patient Disposition: Home, Self-Care Instructions: Diverticulitis (ED), Urinary Tract Infection in Women (DC), Diverticulitis Diet (ED) Additional Instructions: As discussed, your blood work and imaging today reveals that you have diverticulitis as well as a urinary tract infection. I have sent a prescription for antibiotic to your pharmacy, please complete this entire course. Follow instructions on diet associated with diverticulitis. Please be sure to stay well hydrated. Contact your primary care provider to arrange for a follow-up visit in 1-3 days. You may return back to emergency department with any new or worsening symptoms or concerns. Prescriptions: New amoxicillin-pot clavulanate 875-125 mg tablet 1 tab PO BID Qty: 14 0RF No Action amoxicillin-pot clavulanate 875-125 mg tablet 1 tab PO BID Qty: 14 0RF oxycodone 5 mg tablet 5 mg PO Q6H PRN (Reason: pain) Qty: 10 0RF Rx Instructions: Partial Fill upon patient request. Referrals: Physician,Unknown J [Primary Care Provider] -
[2022-12-26 18:03] VITALS: BP 94/52; PULSE 68; RESP 18; O2SAT 99
--- NOTE | 2022-12-26 18:06 | PC.NURSE ---
Alert and oriented. Arrived from home stating yesterday she started having abdominal pain yesterday that has progressively gotten worse. States pain is on her left side and extends to her flank and lower back. States always constiapted. tender upon palpation, positive bowel sounds x 4. States has had this pain before and it was diverticulitis.
[2022-12-26 19:04] VITALS: BP 99/59; PULSE 104; RESP 20; O2SAT 99
[2022-12-26 19:50] VITALS: BP 93/54; PULSE 91; RESP 16; O2SAT 100
[2022-12-26 19:59] VITALS: BP 91/52; PULSE 99; RESP 16; TEMP 36.9; O2SAT 99
== END 2022-12-26 20:06 | disposition home or self-care (01) ==
PROVIDERS: Emergency Provider Emergency Medicine Emergency Medical Services
DX: K57.32 Diverticulitis of large intestine without perforation or abscess without bleeding (principal); N39.0 Urinary tract infection, site not specified
CPT/HCPCS: 36415; 74177; 80053; 81001; 83690; 84702; 85025; 87086; 96361; 96374; 96375; 99284; J2270; J2405; Q9967

== ENCOUNTER 2023-07-18 16:33 | Emergency (ER) | payer OTHER, SELFPAY ==
--- NOTE | ~2023-07-18 | CT_ITS ---
EXAMINATION: CT ABDOMEN AND PELVIS WITH CONTRAST CLINICAL INFORMATION: Left lower quadrant abdominal pain COMPARISON: 12/26/2022 TECHNIQUE: Multidetector volumetric images were obtained from the superior aspect of the liver through the pubic symphysis following administration 85 mL of Omnipaque 350 intravenous contrast. Sagittal and coronal reformatted images were obtained on the technologist's workstation. Oral contrast: No This CT examination was performed using dose optimization techniques as appropriate, variously including the following: *Automated exposure control *Adjustment of mA and/or kV according to patient size (this includes techniques or standardized protocols for targeted exams where dose is matched to indication/reason for exam; i.e. extremities or head) *Use of iterative reconstruction technique DLP: 564 mGy-cm FINDINGS: LUNG BASES: The visualized lung bases are unremarkable. LIVER, GALLBLADDER, AND BILIARY TREE: The liver is normal in size, shape, and attenuation. No focal hepatic lesion or biliary ductal dilatation is present. The gallbladder is unremarkable with no evidence of radiopaque gallstones, gallbladder wall thickening, or obvious pericholecystic inflammatory changes. PANCREAS: Unremarkable. SPLEEN: At the upper limits of normal in size. ADRENAL GLANDS: Unremarkable. KIDNEYS AND URETERS: Bilateral nephrograms are symmetric. No hydronephrosis or obstructing calculus identified. BLADDER: Unremarkable. GASTROINTESTINAL TRACT: No evidence of bowel obstruction. There is a short segment of wall thickening in the mid descending colon with prominent surrounding inflammation in the setting of diverticula, most consistent with acute diverticulitis. There is trace fluid in the left paracolic gutter. No free air or focal fluid collection/abscess is seen. ABDOMINAL WALL: No significant hernia is appreciated. LYMPH NODES: Normal. VASCULAR: Unremarkable. PELVIC VISCERA: Unremarkable. Trace pelvic free fluid, which may be reactive or physiologic. OSSEOUS STRUCTURES: Unremarkable. CT/CT abdomen pelvis w IV con IMPRESSION: Diverticulitis of the mid descending colon.
[2023-07-18 16:55] VITALS: BP 104/62; PULSE 89; RESP 20; TEMP 37.1; O2SAT 100; BMI 35.1
[2023-07-18 18:50] LABS: MANUAL DIFF FLAG NO
[2023-07-18 19:04] LABS: Basophils Absolute Auto 0.1 X10*3/uL (0.0-0.2); Basophils Percent Auto 0.4 % (0-2); Eosinophils Absolute Auto 0.1 X10*3/uL (0.0-0.4); Eosinophils Percent Auto 0.9 % (0-4); Hematocrit 40.2 % (37.0-47.0); Hemoglobin 13.7 g/dl (12.0-16.0); Imm Gran Abs Auto 0.05 X10*3/uL (0.00-0.03); Imm Gran Pct Auto 0.4 % (0.0-0.4); Lymphocytes Absolute Auto 1.4 X10*3/uL (1.2-4.9); Lymphocytes Percent Auto 11.1 % (20-40); Mean Corpuscular HGB Conc 34.1 g/dl (31.0-35.0); Mean Corpuscular Hemoglobin 28.4 pg (27.0-33.0); Mean Corpuscular Volume 83.2 fL (80.0-98.0); Mean Platelet Volume 8.6 fL (9.4-12.3); Monocytes Absolute Auto 1.1 X10*3/uL (0.1-1.2); Monocytes Percent Auto 8.7 % (2-11); Neutrophils Absolute Auto 10.1 x10*3/uL (2.0-8.3); Neutrophils Percent Auto 78.5 % (45-73); Platelet Count 310 X10*3/uL (160-400); Red Blood Count 4.83 X10*6/uL (4.20-5.50); Red Cell Distribution Width 12.5 % (11.0-16.0); White Blood Count 12.9 X10*3/uL (4.8-10.8)
[2023-07-18 19:05] LABS: Alanine Aminotransferase 12 U/L (0-31); Albumin Level 4.2 g/dL (3.5-5.0); Alkaline Phosphatase 75 U/L (39-117); Anion Gap 11 (12-20); Aspartate Amino Transferase 14 U/L (5-31); Bilirubin Direct 0.2 mg/dL (0.0-0.5); Bilirubin Total 0.5 mg/dL (0.0-1.0); Blood Urea Nitrogen 17 mg/dL (9-16); Calcium 9.2 mg/dL (8.4-10.2); Carbon Dioxide 24 mmol/L (22-29); Chloride 107 mmol/L (96-108); Creatinine Clr Calc Pharmacy 99.3; Estimated Glomerular Filt Rate > 60; Glucose Random 105 mg/dL (60-115); Lipase 13 U/L (8-78); Sodium 138 mmol/L (135-145); Total Protein 7.8 g/dL (6.5-8.0)
[2023-07-18 19:37] LABS: COVID-19 Test Negative (Negative); IDNOW Serial# 16C4AD1C; IDNOW Serial# 55D5AD1C
[2023-07-18 19:38] LABS: Influenza A Negative (Negative); Influenza B2 Negative (Negative)
[2023-07-18 21:51] VITALS: BP 117/67; PULSE 91; RESP 18; TEMP 37.8; O2SAT 99
[2023-07-18] MEDS: Acetaminophen 325 MG TABLET 650 MG PO (21:56)
--- NOTE | 2023-07-18 21:57 | PC.NURSE ---
Pt medicated per MAR in triage for temp recheck 100.0 and 10/10 abd pain.
[2023-07-18 22:07] VITALS: BP 116/63; PULSE 95; RESP 18; TEMP 37.7; O2SAT 99
[2023-07-18] MEDS: 0.9 % Sodium Chloride 1,000 ML 999 ML IV (22:38)
[2023-07-18] MEDS: ondansetron HCL 4 MG/2 ML VIAL IVPUSH (22:38)
[2023-07-18] MEDS: Morphine Sulfate 4 MG/ML CARTRIDGE IVPUSH (22:38)
[2023-07-18 23:00] LABS: HCG Quantitative < 2 mIU/mL
[2023-07-18] MEDS: iohexoL 350 MG/ML 100 ML INFUS..BTL 85 ML IV (23:29)
--- NOTE | 2023-07-18 23:36 | ED.GENADULT ---
HPI - General Adult General Chief complaint: Abdominal Pain Stated complaint: left lower abd pain Time Seen by Provider: 07/18/23 22:07 Source: patient, RN notes reviewed and old records reviewed Mode of arrival: ambulatory Limitations: no limitations History of Present Illness HPI narrative: 33-year-old female presents for evaluation of left lower abdominal pain. She reports the pain started yesterday pain She has a history of diverticulitis, most recently in December of last year. She states this feels similar to her episodes of diverticulitis. She denies any fevers but states temperature has been high as 100.0 She reports a history of a tubal ligation but no other abdominal surgeries Denies any sick contacts. Denies any black or bloody stool, denies any symptoms Related Data Previous Rx's Medication Instructions Recorded amoxicillin 875 mg-potassium 1 tab PO BID #14 tabs 08/05/22 clavulanate 125 mg tablet oxycodone 5 mg tablet 5 mg PO Q6H PRN pain #10 tabs 08/05/22 amoxicillin 875 mg-potassium 1 tab PO BID #14 tabs 12/26/22 clavulanate 125 mg tablet amoxicillin 875 mg-potassium 1 tab PO BID #14 tabs 07/18/23 clavulanate 125 mg tablet Allergies Allergy/AdvReac Type Severity Reaction Status Date / Time oxycodone AdvReac Dizziness Verified 07/18/23 16:57 azithromycin Allergy Mild Unknown Uncoded 08/05/22 12:52 Review of Systems Constitutional: Constitutional: Denies chills and Denies fever(s) ENT: Denies sore throat Cardiovascular: Cardiovascular: Denies chest pain and Denies dyspnea Respiratory: Respiratory: Denies cough and Denies dyspnea Gastrointestinal: Gastrointestinal: Reports abdominal pain, Reports loose stools, Denies nausea and Denies vomiting Musculoskeletal: Musculoskeletal: Denies back pain Integumentary/Breasts: Skin/Breast: Denies rash PMFSH Social History Social History Alcohol intake: current Alcohol intake frequency: holidays/special occasions only Smoked in Last 30 Days: No Use of substances other than those prescribed or required for medical reasons: No Advance Directives: No Advance Directives Information Provided: No Physical Exam ED Vital Signs: Vital Signs - 24 hr 07/18/23 16:55 07/18/23 21:51 07/18/23 22:07 Temperature 98.8 F 100.0 F 100 F Pulse Rate 89 91 95 Respiratory Rate 20 18 18 Blood Pressure 104/62 117/67 116/63 Pulse Oximetry 100 99 99 Oxygen Delivery Method Room Air Room Air Room Air BMI result Body Mass Index 35.1 Const General: healthy appearing, comfortable, no acute distress, alert and awake Nutritional Appearance: well nourished Orientation/consciousness: patient oriented x3 HENMT Head: Yes normocephalic and Yes atraumatic Eyes Eyelids: Yes eyelids normal Conjunctivae: conjunctivae normal Sclerae: sclerae normal Corneas: corneas normal Pupils: Equal, round and reactive pupils present EOM: EOMs intact bilaterally Neck Neck: Yes full ROM Resp Effort & Inspection: normal respiratory effort, able to speak in complete sentences and not labored GI Inspection: No distended Palpation (GI): Soft to palpation, not firm, Tenderness to palpation present (GI) in the LLQ, Guarding due to palpation present (GI) and not rigid Skin General skin exam: elasticity normal Neuro General: patient oriented x3 Cranial nerves: Yes Equal, round and reactive pupils present and Yes Bilaterally intact EOM present Cognition (Neuro): normal cognition Extrem Other: Moving all extremities well without any obvious deformities Medications Administered Discontinued Medications Generic Name Dose Route Start Last Admin Trade Name José Luisq PRN Reason Stop Dose Admin Acetaminophen 650 mg 07/18/23 21:52 07/18/23 21:56 Acetaminophen 325 Mg Tablet PO 07/18/23 21:53 650 mg ONCE ONE Administration Sodium Chloride 1,000 mls @ 999 mls/hr 07/18/23 22:30 07/18/23 22:38 Ns IV 07/18/23 23:30 999 mls/hr .Q1H1M BREANN Administration Iohexol 85 ml 07/18/23 23:29 07/18/23 23:29 Iohexol 350 Mg/Ml 100 Ml Infus..Btl IV 07/18/23 23:30 85 ml ONCE ONE Administration Morphine Sulfate 4 mg 07/18/23 22:16 07/18/23 22:38 Morphine Sulfate 4 Mg/Ml Cartridge IVPUSH 07/18/23 22:17 4 mg ONCE ONE Administration Protocol Ondansetron HCl 4 mg 07/18/23 22:16 07/18/23 22:38 Ondansetron Hcl 4 Mg/2 Ml Vial IVPUSH 07/18/23 22:17 4 mg ONCE ONE Administration Medical Decision Making Medical Decision Making [facility] Narrative: [age] female presents for evaluation of left lower abdominal pain. Most likely diagnosis is diverticulitis, patient has history of similar. However given the temp of a 100.0? and the patient's abdominal exam she is guarding lower cornea, we will get a CT scan to rule out microperforation versus abscess formation. Patient treated with fluids and morphine, Zofran. She is not septic Differential Diagnosis Differential Diagnoses: The differential diagnosis associated with the presentation includes Acute diverticulitis Diverticular abscess Abdominal pain Constipation UTI Obstructive uropathy Admission/Observation Consideration of admission/observation: Escalation of care including admission/observation considered Consider admission for acute diverticulitis over the patient's CT scan shows uncomplicated diverticulitis the patient is not septic. Lab Data [facility] Lab Attestation statement: I reviewed the patient's lab results. Patient has a mild leukocytosis to 12.9. No significant anemia. No electrolyte abnormalities. The BUN is slightly elevated to 17 but a normal creatinine 0.81. Normal liver enzymes. 07/18/23 18:45 07/18/23 18:45 Labs: Lab Results 07/18/23 Range/Units 18:45 WBC 12.9 H (4.8-10.8) X10*3/uL RBC 4.83 (4.20-5.50) X10*6/uL Hgb 13.7 (12.0-16.0) g/dl Hct 40.2 (37.0-47.0) % MCV 83.2 (80.0-98.0) fL MCH 28.4 (27.0-33.0) pg MCHC 34.1 (31.0-35.0) g/dl RDW 12.5 (11.0-16.0) % Plt Count 310 (160-400) X10*3/uL MPV 8.6 L (9.4-12.3) fL Immature Gran % (Auto) 0.4 (0.0-0.4) % Neut % (Auto) 78.5 H (45-73) % Lymph % (Auto) 11.1 L (20-40) % Simpson % (Auto) 8.7 (2-11) % Eos % (Auto) 0.9 (0-4) % Baso % (Auto) 0.4 (0-2) % Lymph # (Auto) 1.4 (1.2-4.9) X10*3/uL Simpson # (Auto) 1.1 (0.1-1.2) X10*3/uL Eos # (Auto) 0.1 (0.0-0.4) X10*3/uL Baso # (Auto) 0.1 (0.0-0.2) X10*3/uL Abs Immat Gran (auto) 0.05 H (0.00-0.03) X10*3/uL Absolute Neuts (auto) 10.1 H (2.0-8.3) x10*3/uL Absolute Nucleated RBC 0.000 (0.0-0.012) X10*3/uL Nucleated RBC % (auto) 0.0 (0.0-0.2) /100WBC Sodium 138 (135-145) mmol/L Potassium 4.0 (3.3-5.1) mmol/L Chloride 107 (96-108) mmol/L Carbon Dioxide 24 (22-29) mmol/L Anion Gap 11 L (12-20) BUN 17 H (9-16) mg/dL Creatinine 0.81 (0.5-1.4) mg/dL Estim Creat Clear Calc 99.3 Estimated GFR > 60 Random Glucose 105 (60-115) mg/dL Calcium 9.2 (8.4-10.2) mg/dL Total Bilirubin 0.5 (0.0-1.0) mg/dL Direct Bilirubin 0.2 (0.0-0.5) mg/dL AST 14 (5-31) U/L ALT 12 (0-31) U/L Alkaline Phosphatase 75 (39-117) U/L Total Protein 7.8 (6.5-8.0) g/dL Albumin 4.2 (3.5-5.0) g/dL Lipase 13 (8-78) U/L Beta HCG, Quant < 2 mIU/mL COVID-19 (SYLVAIN) Negative (Negative) COVID-19 Clin Com See Note Influenza Type A (DAMARI) Negative (Negative) Influenza Type B (DAMARI) Negative (Negative) Influenza A & B Note See Note Independent Interpretation I performed an independent interpretation of an: CT Scan (Agree with Radiology interpretation) Radiology Impression Discussion of test interpretation with radiology: I have reviewed the radiologist's reading. (Diverticulitis of the mid descending colon) Discharge Plan Discharge Clinical Impression: Diverticulitis Patient Disposition: Home, Self-Care Instructions: Diverticulitis (ED) Additional Instructions: Take Augmentin twice daily for the next week. Drink lots of fluids pain Use Motrin/Tylenol for fevers, pain Follow-up with your primary doctor Prescriptions: New amoxicillin-pot clavulanate 875-125 mg tablet 1 tab PO BID Qty: 14 0RF No Action amoxicillin-pot clavulanate 875-125 mg tablet 1 tab PO BID Qty: 14 0RF oxycodone 5 mg tablet 5 mg PO Q6H PRN (Reason: pain) Qty: 10 0RF Rx Instructions: Partial Fill upon patient request. amoxicillin-pot clavulanate 875-125 mg tablet 1 tab PO BID Qty: 14 0RF
[2023-07-19] VITALS: BP 122/68; PULSE 89; RESP 18; TEMP 37; O2SAT 99
[2023-07-19] MEDS: Amoxicillin/Potassium Clav 875 MG TABLET PO (00:17)
== END 2023-07-19 00:20 | disposition home or self-care (01) ==
PROVIDERS: Physician Assistant; Physician Assistant Medical; Emergency Provider Internal Medicine
DX: K57.32 Diverticulitis of large intestine without perforation or abscess without bleeding (principal); R10.32 Left lower quadrant pain; Z11.52 Encounter for screening for COVID-19; Z79.899 Other long term (current) drug therapy
CPT/HCPCS: 74177; 80048; 80076; 83690; 84702; 85025; 87502; 87635; 96361; 96374; 96375; 99284; 99285; J2270; J2405; Q9967